=== PATIENT | female | born 1980 | race Caucasian/White ===

== ENCOUNTER 2025-03-11 04:26 | Emergency (ER) | payer BC ==
[~2025-03-11] VITALS: Ht 167.6 cm; Wt 63.0 kg
[2025-03-11 04:29] VITALS: BP 137/87; TEMP 36.7; O2SAT 99
[2025-03-11 04:31] VITALS: PULSE 91; RESP 18; O2SAT 100
[2025-03-11] MEDS: TETANUS, DIPHTHERIA, PERTUSSIS VAC/PF 0.5ML (>10YR OLD) IM ONE (04:45)
[2025-03-11] MEDS: IBUPROFEN 600MG TABLET PO ONE (04:45)
[2025-03-11] MEDS: BACITRACIN ZINC OINT UDPKT TOP ONE (04:45)
[2025-03-11] MEDS: LIDOCAINE HCL 1% 20ML VIAL INFIL ONE (04:45)
[2025-03-11] MEDS ORDERED: IBUP-1455 MT (04:51)
[2025-03-11] MEDS ORDERED: BO1 TP (04:51)
== END 2025-03-11 05:23 | disposition left against medical advice (07) ==
LOC: ER 04:26
DX: S61.411A Laceration without foreign body of right hand, initial encounter (principal); Z53.29 Procedure and treatment not carried out because of patient's decision for other reasons; W26.0XXA Contact with knife, initial encounter; Y93.89 Activity, other specified; Y92.89 Other specified places as the place of occurrence of the external cause; Y99.8 Other external cause status
CPT/HCPCS: 99282